=== PATIENT | male | born 1970 | race Caucasian/White ===

== ENCOUNTER 2019-10-24 00:59 | Emergency (ER) | payer OTHER ==
[~2019-10-24] VITALS: Ht 190.5 cm; Wt 92.1 kg
--- NOTE | 2019-10-24 07:02 | EKG ---
[facility] [address] [facility] [address], [place] [address] Signed Sinus bradycardia Otherwise normal ECG No previous ECGs available Confirmed by MONICA PALACIOS MD ([id number]) on 10/24/2019 7:02:39 AM Electronically Signed By: MONICA PALACIOS MD 10/24/19 0702 PATIENT NAME: GEOVANI HUYNH Electrocardiogram DATE OF : 66 PHYSICIAN: MONICA PALACIOS MD REPORT #: [id number] REPORT IS CONFIDENTIAL AND NOT TO BE RELEASED WITHOUT AUTHORIZATION
== END 2019-10-24 05:00 | disposition home or self-care (01) ==
LOC: ED 00:59
DX: R10.9 Unspecified abdominal pain (principal); M54.5 Low back pain; R07.9 Chest pain, unspecified
CPT/HCPCS: 71045; 74177; 80053; 83690; 83735; 84484; 85025; 85379; 93005; 93010; 96375; 99284-25; J1170; J2405; J7030; Q9967

== ENCOUNTER 2020-05-10 13:39 | Emergency (ER) | payer OTHER ==
[~2020-05-10] VITALS: Ht 190.5 cm; Wt 91.5 kg
[2020-05-10] MEDS ORDERED: ONDANSETRON ODT8 MG PO (18:25)
[2020-05-10] MEDS ORDERED: NORCO 7.5-3251 EACH PO (18:25)
== END 2020-05-10 18:40 | disposition home or self-care (01) ==
LOC: ED 13:39
DX: K80.70 Calculus of gallbladder and bile duct without cholecystitis without obstruction (principal)
CPT/HCPCS: 76705; 80053; 81001; 83690; 85025; 96374; 96375; 96376; 99284-25; J1170; J1885

== ENCOUNTER 2020-05-25 08:40 | Day surgery (SDC) | payer OTHER ==
[~2020-05-25] VITALS: Ht 190.5 cm; Wt 86.4 kg
[~2020-05-25 08:40] MED LIST: NORCO 7.5-3251 EACH PO; ONDANSETRON ODT8 MG PO
[2020-05-25] MEDS ORDERED: HYDROCODON-ACE1 EAC8 PO (13:00)
--- NOTE | 2020-05-25 15:09 | OR ---
[facility] [address] [place], [place] [address] Signed DATE OF OPERATION: 05/25/2020 SURGEON: Jeri Christian MD PREOPERATIVE DIAGNOSES: Chronic cholecystitis with cholelithiasis x1. POSTOPERATIVE DIAGNOSES: Chronic cholecystitis with cholelithiasis x2. PROCEDURE: Laparoscopic cholecystectomy with intraoperative cholangiogram. ESTIMATED BLOOD LOSS: None. FINDINGS: The intraoperative cholangiogram was unremarkable. Javi had two small stones less than 5 mm in diameter in the neck of his gallbladder. He also had multiples smaller yellow cholesterol stones scattered around his gallbladder along with cholesterolosis. INDICATIONS: Chico is a 49-year-old gentleman, asked to see me because of epigastric and right upper quadrant abdominal pain. He has had at least 5 attacks. It radiates through to his back. He has been to our emergency room twice. His laboratory work has been fine. CT scan was unremarkable. Ultrasound showed what looks like a small stone in the neck of the gallbladder. He also has adenomyosis of the gallbladder wall. He had been asked to see me in my office. In the office, I gave Zahraa booklet on the gallbladder. We had reviewed the location and function of the gallbladder. We reviewed laparoscopic versus open cholecystectomy. We had reviewed the expected intraop and postop course. He understands there is risk including, but not limited to bleeding, infection, scarring, change in contour of the skin, damage to bowel, damage to main bile duct, incisional hernias and other unforeseen comorbidities. He also understands that patients with gallstones have a 3%-7% chance of having a stone in the main bile duct requiring ERCP. He had expressed understanding and wished to proceed. PROCEDURE NOTE: I met with Chico in our preop area along with his . After this, he was taken in the operating room and placed in a supine position under general endotracheal tube anesthesia. He was given preoperative antibiotics along with subcutaneous heparin. Electronically Signed By: JERI CHRISTIAN MD 05/25/20 1509 PATIENT NAME: CHICO HUYNH OPERATIVE REPORT DATE OF : 66 REPORT #: [id number] PHYSICIAN: JERI CHRISTIAN MD PCP: KANU CORTEZ MD REPORT IS CONFIDENTIAL AND NOT TO BE RELEASED WITHOUT AUTHORIZATION [facility] [address] [place] [id number] Signed SCDs were utilized. He was then prepped and draped in the usual sterile fashion. All trocars were then placed in usual positions under direct visualization of camera without difficulty. His gallbladder was grasped and elevated in the right upper quadrant. We took pictures throughout for photodocumentation. The triangle of Calot was dissected free and we found his cystic artery immediately behind the cystic duct. We placed two clips across the cystic artery and it was divided. We then inserted our intraoperative cholangiocatheter into the cystic duct. The intraoperative cholangiogram was then performed. We did not see any obvious filling defects. The contrast flowed readily into the duodenum. After this, the cystic duct stump was secured with a PDS Endoloop. Two clips were placed across the cystic duct stump to darrin its location. The gallbladder was then slowly and carefully removed from the gallbladder fossa with the help of the cautery and placed into an EndoCatch bag. The right upper quadrant had been irrigated and suctioned out until clear. We used our laparoscopic suturing device to pass 0 Vicryl suture on either side of the fascia of the subxiphoid trocar site. This was tied down to close this fascia primarily. After this, all the remaining trocars were removed along with the gallbladder. The gas was allowed to escape. The gallbladder then passed off to our circulating nurse. The gallbladder was opened on the back table and we found two small stones in the neck of the gallbladder at least 5 mm or less in diameter. He also had several smaller yellow cholesterol stones all 1 or 2 mm in diameter. He also had significant cholesterolosis. After this, we closed the fascia of the supraumbilical trocar site with interrupted [id number] and simple 0-Vicryl sutures. Local anesthetic was injected in all trocar sites. Each trocar site was irrigated and suctioned out until clear. We closed the skin and dermis of each trocar site with interrupted 3-0 subcuticular Monocryl sutures. Dry gauze and tape were then applied. Chico was awakened from his anesthesia, extubated in the OR, and taken to the recovery room in stable condition. Jeri Christian MD ALB/MODL /[id number] cc: MD Jeri Khan MD Electronically Signed By: JERI CHRISTIAN MD 05/25/20 1509 PATIENT NAME: CHICO HUYNH OPERATIVE REPORT DATE OF : 66 REPORT #: [id number] PHYSICIAN: JERI CHRISTIAN MD PCP: KANU CORTEZ MD REPORT IS CONFIDENTIAL AND NOT TO BE RELEASED WITHOUT AUTHORIZATION [facility] [address], [place] [address] Signed Copies: KANU CORTEZ MD, ANDREW L MD ~ Electronically Signed By: JERI CHRISTIAN MD 05/25/20 1509 PATIENT NAME: CHICO HUYNH OPERATIVE REPORT DATE OF : 66 REPORT #: [id number] PHYSICIAN: JERI CHRISTIAN MD PCP: KANU CORTEZ MD REPORT IS CONFIDENTIAL AND NOT TO BE RELEASED WITHOUT AUTHORIZATION
--- NOTE | 2020-05-29 09:59 | PATH ---
[facility] [address] [facility] [address] [place] [place] [address] Signed SPECIMEN(S): A GALLBLADDER AND STONES SPECIMEN SOURCE: A. GALLBLADDER AND STONES CLINICAL HISTORY: Cholecystitis FINAL PATHOLOGIC DIAGNOSIS: Gallbladder, cholecystectomy: - Chronic cholecystitis with cholesterolosis. - Cholelithiasis. NAL:cml:C2NR MICROSCOPIC EXAMINATION: Histologic sections of all submitted blocks are examined by light microscopy. These findings, together with the gross examination, support the pathologic diagnosis. GROSS DESCRIPTION: The specimen, labeled "MG," and designated on the requisition "gallbladder with stones," is received in formalin and consists of Specimen: Previously incised gallbladder. Dimensions: Upon reconstruction, 7.9 x 2.5 x 2.4 cm. Serosa: Garnett-white, partially fat covered, smooth, glistening. Cystic Duct: 0.4 cm in diameter, patent, and the margin is inked blue. Calculi: The specimen container contains multiple friable, nodular, yellow, hard calculi from less than 0.1 up to 0.5 cm in greatest dimension. Mucosa: Garnett-white, velvety, glistening, diffusely covered in yellow stippling. Wall thickness: Uniform and 0.2 cm. Lymph node: No pericystic lymph nodes are grossly identified. Additional: None. [facility] Detoxification Specialist sections are submitted in cassette (A1). AI (under the direct supervision of a pathologist) The Gross Description was prepared using a voice recognition system. The report was reviewed for accuracy; however, sound-alike word errors, addition and/or deletions may occur. If there is any question about this report, please contact Client Services. PERFORMING LABORATORY: PATIENT NAME: GEOVANI HUYNH PATHOLOGY DATE OF : 66 REPORT #: [id number] PHYSICIAN: DENISE REIS PCP: KANU CORTEZ MD REPORT IS CONFIDENTIAL AND NOT TO BE RELEASED WITHOUT AUTHORIZATION [facility] [address] [place] [address] Signed The technical component was performed by [facility] [place] [address] ([employer] Head: Pilar Earl MD; CLIA# [id number]). Professional interpretation was performed by [facility], [address] [address] (CLIA# [id number]). Diagnostician: Skylar Alex MD Pathologist Electronically Signed 05/29/2020 Copies: ~ PATIENT NAME: GEOVANI HUYNH PATHOLOGY DATE OF : 66 REPORT #: [id number] PHYSICIAN: DENISE REIS PCP: KANU CORTEZ MD REPORT IS CONFIDENTIAL AND NOT TO BE RELEASED WITHOUT AUTHORIZATION
== END 2020-05-26 08:50 | disposition home or self-care (01) ==
LOC: DS 08:40 → MS 18:00 → DS 05-26 08:50
PROVIDERS: ATTEND Colon & Rectal Surgery
DX: K80.10 Calculus of gallbladder with chronic cholecystitis without obstruction (principal); K82.8 Other specified diseases of gallbladder; T81.89XA Other complications of procedures, not elsewhere classified, initial encounter; R11.0 Nausea
CPT/HCPCS: 00790; 74300; J0690; J1100; J1644; J1885; J2250; J2270; J2405; J2550; J2704; J2765; J3010; J7121; Q9967